=== PATIENT | male | born 1970 | race Caucasian/White ===

== ENCOUNTER 2019-02-05 09:31 | Emergency (ER) | payer MEDICAID, OTHER ==
[~2019-02-05] VITALS: Ht 172.7 cm; Wt 92.1 kg
[2019-02-05 09:34] VITALS: BP 137/84
--- NOTE | 2019-02-05 09:42 | NUR ---
PATIENT AMBULATED TO BED 9
--- NOTE | 2019-02-05 09:46 | NUR ---
48 Y MALE BIB FAMILY C/O STABING CONSTANT SHOULDER PAIN AT 8/10 THAT RADIATES DOWN RT ARM. PT REPORTS TENDON PROBLEMS BEFORE, BUT FELL YESTERDAY PLAYING SOCCER AND WOKE UP THIS MORNING WITH SHOULDER PAIN. LIMITED RANGE OF MOTION, CAP REFIL <3 SEC, RADIAL PULSE PRESENT, EDEMA PRESENT IN SHOULDER, NO DEFORMITY PRESENT. PT STATES THE PAIN WORSENS WITH MOVEMENT. [id number]. VSS AT THIS TIME. BED IS LOCKED, BED RAIL X 1, ERMD NOTIFIED. MEDHX:DENIES RX:IBUPROFEN
--- NOTE | 2019-02-05 09:54 | NUR ---
DR HART AT BEDSIDE
[2019-02-05] MEDS ORDERED: KETOROLAC 60 MG/2 ML VIAL IM ONE (10:10)
--- NOTE | 2019-02-05 10:10 | NUR ---
pt sitting in bed. [id number]
[2019-02-05 10:25] VITALS: BP 135/85
--- NOTE | 2019-02-05 10:25 | NUR ---
Patient discharged with v/s stable. Written and verbal after care instructions given and explained. Patient alert, oriented and verbalized understanding of instructions. Ambulatory with steady gait. All questions addressed prior to discharge. ID band removed. Patient advised to follow up with PMD. Rx of norco, motrin given. Patient educated on indication of medication including possible reaction and side effects. Opportunity to ask questions provided and answered.
== END 2019-02-05 10:25 | disposition home or self-care (01) ==
LOC: MED 09:31
DX: S43.401A Unspecified sprain of right shoulder joint, initial encounter (principal); Z90.89 Acquired absence of other organs; W18.39XA Other fall on same level, initial encounter; Y93.66 Activity, soccer; Y93.89 Activity, other specified; Y99.8 Other external cause status
CPT/HCPCS: 96372; 99283; J1885

== ENCOUNTER 2020-04-07 22:36 | Emergency (ER) | payer MEDICAID, OTHER ==
[~2020-04-07] VITALS: Ht 170.2 cm; Wt 88.5 kg
[2020-04-07 22:39] VITALS: BP 137/85
--- NOTE | 2020-04-07 22:44 | NUR ---
PT AMBULATED TO BED 4 WITH STEADY GAIT
--- NOTE | 2020-04-07 22:46 | NUR ---
49M PRESENTS TO ED WITH C/O 9/10 SUBSTERNAL CHEST PAIN THAT RADIATES TO LT LUMBAR REGION. STATES CHEST PAIN IS FEELING OF ACHING AND PRESSURE. STATES ACCOMPANIED WITH 9/10 THROBBING HEADACHE. STARTED X 4 DAYS. STATES HAVE NOT BEEN ABLE TO SLEEP X 2 DAYS. +NAUSEA, DENIES VOMITING OR DIARRHEA. S1S2 PRESENT THROUGHOUT WITH NO EXTRA HEART SOUNDS. CLB SOUNDS. RR EVEN AND UNLABORED. ABDOMEN NORMOACTIVE ON ALL QUADRANTS. DENIES LOC, SOB/COUGH. PMHX: DENIES RX: MOTRIN X 2 HOURS. NKA NEGATIVE FOR COVID SCREENING PT WEARING MASK
[2020-04-07 22:53] VITALS: BP 137/85
--- NOTE | 2020-04-07 22:54 | NUR ---
EKG PERFORMED AT BEDSIDE. SINUS RHYTHM AT 69BPM
--- NOTE | 2020-04-07 22:58 | NUR ---
Dr. Siegel examining patient.
[2020-04-07] MEDS ORDERED: NACL 0.9% 1,000 ML IV ONE (23:05)
[2020-04-07] MEDS ORDERED: ASPIRIN 81 MG TAB.CHEW PO ONE (23:05)
[2020-04-07] MEDS ORDERED: KETOROLAC 30 MG/ML VIAL IVP ONE (23:05)
[2020-04-07] MEDS ORDERED: PANTOPRAZOLE 40 MG INJ VIAL IVP ONE (23:05)
--- NOTE | 2020-04-07 23:31 | NUR ---
pt medicated with protonix, aspirin PO , and toradol ivp. tolerated well. nadr
[2020-04-07 23:32] LABS: BASOPHILS % (AUTO) 0.7 % (0.0-2.0); EOSINOPHILS % (AUTO) 0.4 % (0.0-4.0); HEMATOCRIT 46.5 % (36-52); HEMOGLOBIN 15.3 g/dL (12.0-18.0); LYMPHOCYTES % (AUTO) 44.9 % (20.5-51.1); MEAN CORPUSCULAR HEMOGLOBIN 31 pg (27-31); MEAN CORPUSCULAR HGB CONC 33 g/dL (33-37); MEAN CORPUSCULAR VOLUME 93.7 fL (80-94); MONOCYTES # (AUTO) 0.7 K/uL (0.8-1.0); MONOCYTES % (AUTO) 10.3 % (1.7-9.3); NEUTROPHILS # (AUTO) 2.9 K/uL (1.8-7.7); NEUTROPHILS % (AUTO) 43.7 % (42.2-75.2); PLATELET COUNT (AUTO) 169 K/uL (140-450); RED BLOOD CELL COUNT(AUTO) 4.96 MIL/uL (4.20-6.10); RED CELL DISTRIBUTION WIDTH 13.1 % (11.6-13.7); WHITE BLOOD COUNT (AUTO) 6.6 K/uL (4.8-10.8)
[2020-04-08 00:24] LABS: ALBUMIN 4.2 g/dL (3.4-5.0); ANION GAP 20.1 (8-16); CARBON DIOXIDE 23.8 mmol/L (21-32); CREATININE 1.2 mg/dL (0.6-1.3); POTASSIUM 3.9 mmol/L (3.5-5.1); TOTAL BILIRUBIN 0.4 mg/dL (0.0-1.0)
== END 2020-04-08 00:40 | disposition home or self-care (01) ==
LOC: MED 22:36
DX: R07.9 Chest pain, unspecified (principal)
CPT/HCPCS: 36415; 71045; 80053; 84484; 85025; 93005; 96374; 96375; 99285; C9113; J1885; J7030; Q0092

== ENCOUNTER 2022-08-07 17:46 | Emergency (ER) | payer OTHER ==
[~2022-08-07] VITALS: Ht 170.2 cm; Wt 95.3 kg
[2022-08-07 17:53] VITALS: BP 133/94
[2022-08-07] MEDS ORDERED: IBUP-2213 PO ×2 (19:13→20:14)
[2022-08-07] MEDS ORDERED: BACI1PAC6 TP ×2 (19:13→20:14)
[2022-08-07] MEDS ORDERED: CEPH-588 PO ×2 (19:13→20:14)
[2022-08-07 20:15] VITALS: BP 146/76
--- NOTE | 2022-08-07 20:15 | NUR ---
PATIENT SEEN AND MEDICATED BY PA. NO NURSING INTERVENTIONS DONE. ID band removed. Patient advised to follow up with PMD. Rx of BACITRACIN, KEFLEX AND IBUPROFEN given. Patient educated on indication of medication including possible reaction and side effects. Opportunity to ask questions provided and answered.
== END 2022-08-07 20:15 | disposition home or self-care (01) ==
LOC: MED 17:46
DX: L03.032 Cellulitis of left toe (principal)
CPT/HCPCS: 73660; 99283

== ENCOUNTER 2023-02-08 12:56 | Emergency (ER) | payer OTHER ==
[~2023-02-08] VITALS: Ht 167.6 cm; Wt 93.4 kg
[~2023-02-08 12:56] MED LIST: BACI-416 TP; CEPH-588 PO; IBUP-2213 PO
[2023-02-08 13:08] VITALS: BP_SYST 127; BP_SYST 158; BP_DIAS 77; BP_DIAS 97
--- NOTE | 2023-02-08 13:18 | NUR ---
DR MOSHER AWARE OF PTS STATUS, ACCOMPANIED AT TRIAGE.
--- NOTE | 2023-02-08 13:22 | NUR ---
PT W/C ASSISTED TO ER BED 1
[2023-02-08] MEDS ORDERED: ACETAMINOPHEN EXTRA STRENGTH 500 MG TAB PO ONE (14:10)
--- NOTE | 2023-02-08 14:18 | NUR ---
able to ambulate, change clothes by self with some difficulty with soreness
[2023-02-08] MEDS ORDERED: LIDOCAINE 5% 1 EA PATCH TP SCH (14:35)
[2023-02-08] MEDS ORDERED: methocarbamoL 500 MG TAB PO ONE (14:35)
[2023-02-08] MEDS ORDERED: METH-1681 PO (15:50)
[2023-02-08] MEDS ORDERED: IBUP-2213 PO (15:50)
[2023-02-08] MEDS ORDERED: ACET-10509 PO (15:50)
[2023-02-08] MEDS ORDERED: LID5T TP (15:50)
[2023-02-08 16:12] VITALS: BP 158/97
--- NOTE | 2023-02-08 16:13 | NUR ---
Patient discharged with v/s stable. Written and verbal after care instructions given and explained. Patient verbalized understanding. Ambulatory with steady gait. All questions addressed prior to discharge. Advised to follow up with PMD.
== END 2023-02-08 16:12 | disposition home or self-care (01) ==
LOC: MED 12:56
DX: S16.1XXA Strain of muscle, fascia and tendon at neck level, initial encounter (principal); S46.911A Strain of unspecified muscle, fascia and tendon at shoulder and upper arm level, right arm, initial encounter; S90.32XA Contusion of left foot, initial encounter; S00.83XA Contusion of other part of head, initial encounter; S80.812A Abrasion, left lower leg, initial encounter; M54.50 Low back pain, unspecified; Z79.899 Other long term (current) drug therapy; Z79.2 Long term (current) use of antibiotics; Z79.1 Long term (current) use of non-steroidal anti-inflammatories (NSAID); V89.2XXA Person injured in unspecified motor-vehicle accident, traffic, initial encounter; Y93.89 Activity, other specified; Y92.410 Unspecified street and highway as the place of occurrence of the external cause; Y99.8 Other external cause status
CPT/HCPCS: 70450; 73030; 73620; 99284